=== PATIENT | male | born 1995 | race African-American/Black ===

== ENCOUNTER 2020-10-26 16:33 | Emergency (ER) | payer OTHER ==
[~2020-10-26] VITALS: Ht 180.3 cm; Wt 80.9 kg
--- NOTE | 2020-10-26 17:21 | REP ---
INDICATION: TRAUMA COMPARISON: None. TECHNIQUE: AP, lateral, bilateral oblique views. FINDINGS: No acute fracture or dislocation. Skeletal structures and joint spaces are intact and normal. Ankle mortise appears stable. No subcutaneous emphysema or radiodense foreign body. IMPRESSION: Normal right ankle radiograph series. <Electronically signed by Александр Sutton > 10/26/20 [id number]
[2020-10-26 17:49] VITALS: BP 124/74
== END 2020-10-26 17:58 | disposition home or self-care (01) ==
LOC: M ED 16:33
DX: S93.401A Sprain of unspecified ligament of right ankle, initial encounter (principal); X50.9XXA Other and unspecified overexertion or strenuous movements or postures, initial encounter; Y92.39 Other specified sports and athletic area as the place of occurrence of the external cause; Y93.67 Activity, basketball; Y99.8 Other external cause status